=== PATIENT | male | born 1955 | race Hispanic/Latino ===

== ENCOUNTER 2019-10-19 19:10 | Emergency (ER) | payer OTHER, SELFPAY ==
[2019-10-19] MEDS ORDERED: IBUPROFEN 400 MG TAB ONE (19:55)
[2019-10-19] MEDS ORDERED: IBUPROFEN 200 MG TAB PO ONE (19:55)
[2019-10-19] MEDS ORDERED: NA CHLORIDE 0.9% 500 ML ONE (19:56)
[2019-10-19 20:05] LABS: Absolute Lymphocytes (CBC) 1.3 K/uL (0.7-4.9); Basophils % 0.5 % (0-1.3); Hematocrit 44.8 % (39.6-49.0); Lymphocytes % 15.2 % (15.3-44.8); MPV 10.3 fL (7.6-11.3); RBC Red Blood Cell Count 4.81 M/uL (4.33-5.43)
[2019-10-19] MEDS ORDERED: LIDOCAINE 1% MPF 5 ML VIAL ONE (20:42)
[2019-10-19 21:44] LABS: Body Fluid Source SYNOVIAL; Color of fluid Yellow (COLORLESS)
[2019-10-19 21:45] LABS: Appearance SLT. TURBID (CLEAR)
[2019-10-19 21:52] LABS: Body Fluid WBC 628 /mm^3
--- NOTE | 2019-10-19 21:57 | ER ---
Nurse's Notes [facility] Name: Shameka Villanueva Age: 64 yrs Sex: Male : 1955 Arrival Date: 10/19/2019 Time: 19:14 Bed 13 Private MD: Diagnosis: Pain in left knee;Cellulitis of left lower limb-Thigh/knee Presentation: 10/18 19:29 Chief complaint: Patient states: L knee pain, redness and swelling worst today. Reports ca1 unable to bend L knee today. Pain started on Sunday but hasn't been this worse. Denies fever, cough and congestion. Coronavirus screen: Patient denies fever greater than 100.4F, cough, shortness of breath, or difficulty breathing. Proceed with normal triage process. Ebola Screen: Patient negative for fever greater than or equal to 101.5 degrees Fahrenheit, and additional compatible Ebola Virus Disease symptoms Patient denies exposure to infectious person. Patient denies travel to an Ebola-affected area in the 21 days before illness onset. No symptoms or risks identified at this time. Initial Sepsis Screen: Does the patient meet any 2 criteria? No. Patient's initial sepsis screen is negative. Does the patient have a suspected source of infection? No. Patient's initial sepsis screen is negative. Risk Assessment: Do you want to hurt yourself or someone else? Patient reports no desire to harm self or others. Onset of symptoms was October 19, 2019. 19:29 Method Of Arrival: Wheelchair ca1 19:29 Acuity: SHAQ 3 ca1 Historical: - Allergies: 19:32 No Known Allergies; ca1 - Home Meds: 19:32 None [Active]; ca1 - PMHx: 19:32 None; ca1 - PSHx: 19:32 Hernia repair; ca1 - Immunization history:: Adult Immunizations not up to date, Flu vaccine is up to date. - Social history:: Smoking status: Patient/guardian denies using tobacco, the patient reports quitting approximately 28 years ago. Screenin:07 Abuse screen: Denies threats or abuse. Nutritional screening: No deficits noted. jv1 Tuberculosis screening: No symptoms or risk factors identified. Fall Risk No fall in past 12 months (0 pts). Assessment: 20:02 General: Appears in no apparent distress. uncomfortable, Behavior is calm, cooperative, jv1 appropriate for age. Pain: Complains of pain in left knee Pain does not radiate. Pain currently is 8 out of 10 on a pain scale. Neuro: Level of Consciousness is awake, alert, obeys commands, Oriented to person, place, time, situation, Leather Heel Breaster are equal bilaterally Moves all extremities. Cardiovascular: Denies chest pain. Respiratory: Airway is patent Breath sounds are clear bilaterally. GI: Abdomen is round non-distended, Bowel sounds present X 4 quads. : No signs and/or symptoms were reported regarding the genitourinary system. EENT: No signs and/or symptoms were reported regarding the EENT system. Derm: Skin is intact, is healthy with good turgor, pt has rash, erythematous over left knee. Musculoskeletal: Circulation, motion, and sensation intact. Capillary refill < 3 seconds, Range of motion: limited in left leg, pt stated he cannot bend his leg because of pain. 20:50 Reassessment: provider in the room with pt. jv1 21:00 Reassessment: Patient appears in no apparent distress at this time. No changes from jv1 previously documented assessment. Patient and/or family updated on plan of care and expected duration. Pain level reassessed. Patient is alert, oriented x 3, equal unlabored respirations, skin warm/dry/pink. Patient states feeling better. 22:02 Reassessment: Patient appears in no apparent distress at this time. No changes from jv1 previously documented assessment. Patient and/or family updated on plan of care and expected duration. Pain level reassessed. Patient is alert, oriented x 3, equal unlabored respirations, skin warm/dry/pink. provider in the room with pt. Vital Signs: 19:29 BP 141 / 94; Pulse 109; Resp 17 S; Temp 96.7(TE); Pulse Ox 95% on R/A; Weight 92.99 kg ca1 (R); Height 5 ft. 8 in. (172.72 cm) (R); Pain 8/10; 19:29 BP 141 / 94; Pulse 109; Resp 18; Temp 97.0; Pulse Ox 92% on R/A; Pain 8/10; jv1 20:59 BP 147 / 90; Pulse 83; Resp 18; Temp 97.5; Pulse Ox 98% ; Pain 5/10; jv1 22:02 BP 148 / 90; Pulse 88; Resp 18; Temp 98.2; Pulse Ox 95% ; Pain 3/10; jv1 19:29 Body Mass Index 31.17 (92.99 kg, 172.72 cm) ca1 ED Course: 19:14 Patient arrived in ED. ds1 19:14 [facility] la1 19:14 Jose Wylie MD is Attending Physician. la1 19:31 Triage completed. ca1 19:32 Arm band placed on right wrist. ca1 19:59 Inserted saline lock: 20 gauge in right antecubital area, using aseptic technique. dh4 20:06 Knee Left 3 View XRAY In Process Unspecified. EDMS 20:08 Patient has correct armband on for positive identification. Bed in low position. Side jv1 rails up X2. 21:09 synovial fluid aspiration on the left knee. jv1 22:23 IV discontinued, intact, bleeding controlled, No redness/swelling at site. Pressure jv1 dressing applied. Administered Medications: 19:57 Drug: Ibuprofen 600 mg Route: PO; jv1 21:15 Follow up: Response: No adverse reaction; Pain is decreased jv1 19:58 Drug: NS 0.9% 500 ml Route: IV; Rate: bolus; Site: right antecubital; jv1 21:22 Follow up: Response: No adverse reaction; IV Status: Completed infusion jv1 21:05 Drug: Lidocaine (1 %) 5 ml {Note: Administered by JUDITH Avalos.} Volume: 5 ml; Route: jv1 Infiltration; 22:08 Drug: Doxycycline 100 mg Route: PO; jv1 22:21 Follow up: Response: No adverse reaction jv1 22:09 Drug: Bactrim (160 mg-800 mg (DS) 1 tablet Route: PO; jv1 22:21 Follow up: Response: No adverse reaction jv1 Outcome: 21:57 Discharge ordered by . la1 22:22 Discharged to home ambulatory. jv1 22:22 Condition: good 22:22 Discharge instructions given to patient, Instructed on discharge instructions, follow up and referral plans. medication usage, Demonstrated understanding of instructions, follow-up care, medications, Prescriptions given X 3. 22:26 Patient left the ED. jv1 Signatures: Dispatcher [employer] EDFL Geneva Garcia ds1 Robbie Rockwell FNP-C [employer] TECHNICIAN-Cla1 Viv Henson, RN RN jv1 Martha Pacheco, RN RN ca1 Magdiel Young 4
--- NOTE | 2019-10-19 21:58 | EDPHYS ---
Physician Documentation [facility] Name: Shameka Villanueva Age: 64 yrs Sex: Male : 1955 Arrival Date: 10/19/2019 Time: 19:14 Bed 13 Private MD: ED Physician Jose Wylie HPI: 10/18 19:41 This 64 yrs old Male presents to ER via Wheelchair with complaints of Knee la1 Pain. 19:41 The patient presents with pain, a rash, erythematous, swelling. The complaints affect la1 the left knee. Context: The problem was sustained at home, resulted from an unknown cause, the patient can partially bear weight, Onset: The symptoms/episode began/occurred 4 day(s) ago. Modifying factors: The symptoms are alleviated by nothing. the symptoms are aggravated by movement, bending knee. Associated signs and symptoms: Pertinent negatives fever. Severity of symptoms: At their worst the symptoms were moderate. The patient has not experienced similar symptoms in the past. pt reports pain that started in his knee 4 days ago and redness that began today, reports significant pain with ROM of the knee. Historical: - Allergies: 19:32 No Known Allergies; ca1 - Home Meds: 19:32 None [Active]; ca1 - PMHx: 19:32 None; ca1 - PSHx: 19:32 Hernia repair; ca1 - Immunization history:: Adult Immunizations not up to date, Flu vaccine is up to date. - Social history:: Smoking status: Patient/guardian denies using tobacco, the patient reports quitting approximately 28 years ago. ROS: 19:42 Constitutional: Negative for fever, chills, and weight loss, Eyes: Negative for injury, la1 pain, redness, and discharge, Neck: Negative for injury, pain, and swelling, Cardiovascular: Negative for chest pain, palpitations, and edema, Respiratory: Negative for shortness of breath, cough, wheezing, and pleuritic chest pain, Abdomen/GI: Negative for abdominal pain, nausea, vomiting, diarrhea, and constipation, Back: Negative for injury and pain. 19:42 MS/extremity: Positive for decreased range of motion, erythema, swelling, warmth, of the medial aspect of left knee and left knee. 19:42 Skin: Positive for erythema, of the left knee. Exam: 19:43 Constitutional: This is a well developed, well nourished patient who is awake, alert, la1 and in no acute distress. Head/Face: Normocephalic, atraumatic. Chest/axilla: Normal chest wall motion. Cardiovascular: Regular rate and rhythm with a normal S1 and S2. Respiratory: Lungs have equal breath sounds bilaterally, clear to auscultation Abdomen/GI: Soft, non-tender, with normal bowel sounds. Back: No spinal tenderness. No costovertebral tenderness. Full range of motion. Neuro: Awake and alert, GCS 15, oriented to person, place, time, and situation. 19:43 Musculoskeletal/extremity: ROM: limited active range of motion due to pain, limited passive range of motion due to pain, in the left knee, Pulses: noted to be 3+ in the right dorsalis pedis artery and left dorsalis pedis artery. 19:43 Skin: Appearance: normal except for affected area, erythema noted to left knee, over patella and extending partially up the thigh, mild in appearance . Vital Signs: 19:29 BP 141 / 94; Pulse 109; Resp 17 S; Temp 96.7(TE); Pulse Ox 95% on R/A; Weight 92.99 kg ca1 (R); Height 5 ft. 8 in. (172.72 cm) (R); Pain 8/10; 19:29 BP 141 / 94; Pulse 109; Resp 18; Temp 97.0; Pulse Ox 92% on R/A; Pain 8/10; jv1 20:59 BP 147 / 90; Pulse 83; Resp 18; Temp 97.5; Pulse Ox 98% ; Pain 5/10; jv1 22:02 BP 148 / 90; Pulse 88; Resp 18; Temp 98.2; Pulse Ox 95% ; Pain 3/10; jv1 19:29 Body Mass Index 31.17 (92.99 kg, 172.72 cm) ca1 Procedures: 21:09 Joint Treatment: Aspiration of left knee using anesthetized with 27g needle and 1% lido la1 without, aspirated with 22 G spinal needle, area prepped with betadine, draped with sterile OR towels, performed with sterile procedure. . Removed clarence fluid, yellow fluid, Specimen sent to lab. Patient tolerated well. MDM: 19:29 Patient medically screened. la1 21:23 ED course: decision to perform joint aspiration due to monoarticular joint pain, pain la1 and limited ROM, and some mild erythema present over patella and over thigh. No contraindications to procedure present, no use of anticoagulants, no cellulitis overlying the injection site. Preforming aspiration to R/O septic arthritis.. 21:57 Data reviewed: vital signs, nurses notes, lab test result(s), radiologic studies, I la1 have discussed the patient's presentation/case with the attending Emergency Department Physician; and as a result, I will discharge patient. Data interpreted: Pulse oximetry: on room air is 100 %. Test interpretation: by ED physician or midlevel provider: plain radiologic studies. Counseling: I had a detailed discussion with the patient and/or guardian regarding: the historical points, exam findings, and any diagnostic results supporting the discharge/admit diagnosis, lab results, radiology results, the need for outpatient follow up, a orthopedic surgeon, to return to the emergency department if symptoms worsen or persist or if there are any questions or concerns that arise at home. 10/18 19:36 Order name: CBC with Diff; Complete Time: 20:23 10/18 19:36 Order name: Sed Rate; Complete Time: 20:23 10/18 19:36 Order name: CRP; Complete Time: 20:20 10/18 19:36 Order name: Blood Culture Adult (2) 10/18 20:39 Order name: Fluid Cell Count,Body; Complete Time: 21:55 10/18 20:39 Order name: Fluid Crystals; Complete Time: 21:28 10/18 19:36 Order name: Knee Left 3 View XRAY 10/18 19:36 Order name: IV Start; Complete Time: 20:23 10/18 20:43 Order name: Body Fluid Culture EDMS Administered Medications: 19:57 Drug: Ibuprofen 600 mg Route: PO; jv1 21:15 Follow up: Response: No adverse reaction; Pain is decreased jv1 19:58 Drug: NS 0.9% 500 ml Route: IV; Rate: bolus; Site: right antecubital; jv1 21:22 Follow up: Response: No adverse reaction; IV Status: Completed infusion jv1 21:05 Drug: Lidocaine (1 %) 5 ml {Note: Administered by JUDITH Avalos.} Volume: 5 ml; Route: jv1 Infiltration; 22:08 Drug: Doxycycline 100 mg Route: PO; jv1 22:21 Follow up: Response: No adverse reaction jv1 22:09 Drug: Bactrim (160 mg-800 mg (DS) 1 tablet Route: PO; jv1 22:21 Follow up: Response: No adverse reaction jv1 Disposition: 22:59 Co-signature as Attending Physician, Jose Wylie MD. pkl Disposition: 10/19/19 21:57 Discharged to Home. Impression: Pain in left knee, Cellulitis of left lower limb - Thigh/knee. - Condition is Stable. - Discharge Instructions: Joint Pain, Cellulitis, Adult, Knee Pain, Form - Return To Work. - Prescriptions for Bactrim DS 800- 160 mg Oral Tablet - take 1 tablet by ORAL route every 12 hours for 10 days; 20 tablet. Doxycycline Hyclate 100 mg Oral Tablet - take 1 tablet by ORAL route every 12 hours; 20 tablet. Tramadol 50 mg Oral Tablet - take 1 tablet by ORAL route every 8 hours as needed; 12 tablet. - Medication Reconciliation Form, Thank You Letter, Antibiotic Education, Work release form form. - Follow up: Private Physician; When: 2 - 3 days; Reason: Recheck today's complaints, Re-evaluation by your physician. - Problem is new. - Symptoms have improved. Signatures: Dispatcher [employer] EDMS Jose Wylie MD MD pkl Robbie Rockwell FNP-C SAMPLE CUTTER-Cla1 Viv Henson RN RN jv1 Martha Pacheco RN RN ca1 Corrections: (The following items were deleted from the chart) 21:23 19:43 Skin: Appearance: normal except for affected area, cellulitis, that is moderate, la1 on the medial aspect of left knee and left knee, la1 22:26 21:57 10/19/2019 21:57 Discharged to Home. Impression: Pain in left knee; Cellulitis of jv1 left lower limb - Thigh/knee. Condition is Stable. Discharge Instructions: Joint Pain, Cellulitis, Adult, Musculoskeletal Pain, Knee Pain. Prescriptions for Bactrim DS 800-160 mg Oral Tablet - take 1 tablet by ORAL route every 12 hours for 10 days; 20 tablet, Doxycycline Hyclate 100 mg Oral Tablet - take 1 tablet by ORAL route every 12 hours; 20 tablet. and Forms are Medication Reconciliation Form, Thank You Letter, Antibiotic Education, Prescription Opioid Use. Follow up: Private Physician; When: 2 - 3 days; Reason: Recheck today's complaints, Re-evaluation by your physician. Problem is new. Symptoms have improved. la1
[2019-10-19] MEDS ORDERED: SMZ./TMP. 800/160 MG TABLET ONE (22:09)
[2019-10-19] MEDS ORDERED: DOXYCYCLINE 100 MG CAP PO ONE (22:09)
[2019-10-19 22:54] VITALS: BP 148/90; TEMP 98.2; O2SAT 95
--- NOTE | 2019-10-20 08:17 | RAD REPORT ---
EXAM DESCRIPTION: RAD - Knee Left 3 View - 10/19/2019 8:04 pm CLINICAL HISTORY: Left knee pain FINDINGS: No fracture or dislocation is seen. Mild lateral joint space narrowing. Soft tissue swelling is noted. Bones appear somewhat osteoporotic
== END 2019-10-19 22:26 | disposition home or self-care (01) ==
LOC: ER 19:10
PROC: 0S9D3ZZ Drainage of Left Knee Joint, Percutaneous Approach (ICD-10-PCS; principal; 2019-10-19)
DX: L03.116 Cellulitis of left lower limb (principal)
CPT/HCPCS: 36415; 85025; 85652; 86140; 87040; 87070; 89050; 89060; 96360; 99284; J7040

== ENCOUNTER 2022-09-26 09:49 | Emergency (ER) | payer OTHER, SELFPAY ==
--- OUTSIDE RECORDS SUMMARY | 2022-09-26 09:53 | XMS REPORT | Continuity of Care Document ---
:1955 Author Organization [facility] t Address [address] [facility] [address] [place] [address] Care Team Providers Name Role Phone PCP, PATIENT DOES NOT HAVE A Primary Care Physician Unavaila ble Pati Shirley Attending Clinician Unknown, Attending Attending Clinician Unavailable PATI BRADFORD Attending Clinician Unavailable Doctor Unassigned, [place] Attending Clinician Unavailable Vaccine, Adc Family Medicine Attending Clinician Unavailable Sumanth Jules DO Attending Clinician SUMANTH JULES Attending Clinician Unavailable Trevor THORNTON, Doreen Rivera Attending Clinician Unavailable ALISON VILLEGAS Attending Clinician Unavailable Only, Ang Db Test Attending Clinician Unavailable Alison Peralta Attending Clinician Nurse, Adc Pob Immunization Attending Clinician Unavailable Marcus Holly MD Attending Clinician MARCUS HOLLY Attending Clinician Unavailable JOHN RODRIGUEZ Attending Clinician Unavailable Landy Hudson Attending Clinician Vishal Cardenas Attending Clinician Problems Condition Condition Condition Status Onset Resolution Last Treating Co mments Source Name Details Category Date Date Treatment Clinician Date Essential Essential Disease Active Uni vers hypertensi hypertensi 5-19 it y of on on 00:00: [address] No known No known Disease Unive rs active active ity of problems problems [facility] Allergies, Adverse Reactions, Alerts Allergy Allergy Status Severity Reaction(s) Onset Inactive Treating Comm ents Source Name Type Date Date Clinician NO KNOWN Drug Active Univers ALLERGIE Class ity of S [facility] Social History Social Habit Start Date Stop Date Quantity Comments Source History SDAL University o f Alcohol [facility] edical Branch History SDAL University o f Alcohol Std Drinks [facility] History [facility] o f Alcohol Binge [facility] [place] Exposure to 2022-09-12 2022-09-22 Not sure [facility] SARS-CoV-2 (event) 00:00:00 09:25:00 [facility] Cigarettes smoked 2022-09-22 2022-09-22 Univers ity of current (pack per 00:00:00 00:00:00 [facility] ) - Reported Branch Cigarette 2022-09-22 2022-09-22 University of pack-years 00:00:00 00:00:00 [facility] Tobacco use and 2022-09-22 2022-09-22 Smokeless Universit y of exposure 00:00:00 00:00:00 tobacco non-user [facility] dical [place] Alcohol intake 2022-09-22 2022-09-22 Current drinker Unive rsity of 00:00:00 00:00:00 of alcohol [facility] (finding) [place] Alcohol Comment 2017-06-04 2017-06-04 social; 1-2 Universi ty of 00:00:00 00:00:00 every 2 weeks. [facility] History of tobacco 2005-06-04 Cigarette Smoker University of use 00:00:00 [facility] Sex Ass[birth year] Universit y of 00:00:00 00:00:00 [facility] Smoking Status Start Date Stop Date Source Ex-smoker 2022-09-22 00:00:00 2022-09-22 00:00:00 Universi ty of [facility] Medications Ordered Filled Start Stop Current Ordering Indication Dosage Frequency Signature Comments Components Source Medication Medication Date Date Medication? Clinician (SIG) Name Name lisinopriL 2021-0 Yes [id number] 10mg Take 1 U nivers 10 mg 5-19 tablet by ity of tablet 00:00: mouth [place] 00 daily. [facility] Branch lisinopriL 0 Yes [id number] 10mg Take 1 U nivers 10 mg 5-19 tablet by ity of tablet 00:00: mouth [place] 00 daily. [facility] lisinopriL 0 Yes [id number] 10mg Take 1 U nivers 10 mg 5-19 tablet by ity of tablet 00:00: mouth [place] 00 daily. [facility] lisinopriL 0 Yes [id number] 10mg Take 1 U nivers 10 mg 5-19 tablet by ity of tablet 00:00: mouth [place] 00 daily. [facility] lisinopriL 0 Yes [id number] 10mg Take 1 U nivers 10 mg 5-19 tablet by ity of tablet 00:00: mouth [place] 00 daily. [facility] lisinopriL Yes [id number] 10mg Take 1 U nivers 10 mg 5-19 tablet by ity of tablet 00:00: mouth [place] 00 daily. [facility] lisinopriL Yes [id number] 10mg Take 1 U nivers 10 mg 5-19 tablet by ity of tablet 00:00: mouth [place] 00 daily. [facility] lisinopriL 0 Yes [id number] 10mg Take 1 U nivers 10 mg 5-19 tablet by ity of tablet 00:00: mouth [place] 00 daily. [facility] lisinopriL Yes [id number] 10mg Take 1 U nivers 10 mg 5-19 tablet by ity of tablet 00:00: mouth [place] 00 daily. [facility] lisinopriL 0 Yes [id number] 10mg Take 1 U nivers 10 mg 5-19 tablet by ity of tablet 00:00: mouth [place] 00 daily. [facility] naproxen 2020- No 500mg 500 mg, Univ ers (NAPROSYN) 03-14 Oral, ity of tablet 500 05:45: 04:45 ONCE, 1 [place] as mg 00 :00 dose, [facility] 03/14/20 at Branch 0045, Routine HYDROcodone 2020- No 1{tbl} 1 tablet, Univers -acetaminop 03-14 Oral, ity of hen (NORCO) 05:45: 04:45 [place] :00 dose, [facility] tablet 1 03/14/20 at [facility] tablet 0045, Routine lidocaine-r 2019- No 3mL 3 mL, Univ ers acepinep-te 03-14 Topical, ity of tracaine 04:30: 03:45 ONCE, 1 [place] (L.E.T. 00 :00 dose, Sat Medical (LIDO-EPINE 03/13/20 at [facility] PH-TETRA)) 2330, 4-0.05-0.5 Routine % topical gel 3 mL acetaminoph 2019- No 1000mg 1,000 mg, Univers en 03-14 Oral, ity of (TYLENOL) 01:30: 00:21 ONCE, 1 [place] tablet [place] :[place] dose, Sat Medical 1,000 mg 03/13/20 at [facility] h 2030, FAVIO naproxen 2019-0 Yes [id number] 500mg Take 1 U nivers (NAPROSYN) 8-15 tablet by ity of 500 mg 00:00: mouth 2 [place] tablet 00 (two) Medical times Branch daily with meals. naproxen 2020-0 Yes [id number] 500mg Take 1 U nivers (NAPROSYN) 8-15 tablet by ity of 500 mg 00:00: mouth 2 [place] tablet 00 (two) Medical times Branch daily with meals. naproxen 2019-0 Yes [id number] 500mg Take 1 U nivers (NAPROSYN) 8-15 tablet by ity of 500 mg 00:00: mouth 2 [place] tablet 00 (two) Medical times Branch daily with meals. naproxen 2020-0 2020- No [id number] 500mg Take 1 Univers (NAPROSYN) 8-15 05-19 tablet by ity of 500 mg 00:00: 00:00 mouth 2 [place] tablet 00 :00 (two) Medical times Branch daily with meals. naproxen 2020-0 2020- No [id number] 500mg Take 1 Univers (NAPROSYN) 8-15 05-19 tablet by ity of 500 mg 00:00: 00:00 mouth 2 [place] tablet 00 :00 (two) Medical times Branch daily with meals. sharri 2018-07 Yes [id number] Apply to [facility] 2-07 area(s) 2 ity of acetonide 00:00: (two) [place] 0.1 % cream 00 times Medical daily. Branch triamcinolo 2018-07 Yes [id number] Apply to [facility] 2-07 area(s) 2 ity of acetonide 00:00: (two) [place] 0.1 % cream 00 times Medical daily. Branch triamcinolo 2018-07 Yes [id number] Apply to [facility] 2-07 area(s) 2 ity of acetonide 00:00: (two) [place] 0.1 % cream 00 times Medical daily. Branch triamcinolo 2018-07- No [id number] Apply to [facility] 2-07 05-19 area(s) 2 ity of acetonide 00:00: 00:00 (two) [place] 0.1 % cream 00 :00 times Medical daily. Branch stasamcinolo 2018-07- No [id number] Apply to [facility] 2-07 05-19 area(s) 2 ity of acetonide 00:00: 00:00 (two) [place] 0.1 % cream 00 :00 times Medical daily. Branch hydrOXYzine Yes [id number] 25mg Take 1 Univers 25 mg 4-04 tablet by ity of tablet 00:00: mouth [place] 00 every 6 Medical (six) Branch hours as needed for Itching. hydrOXYzine Yes [id number] 25mg Take 1 Univers 25 mg 4-04 tablet by ity of tablet 00:00: mouth [place] 00 every 6 Medical (six) Branch hours as needed for Itching. hydrOXYzine Yes [id number] 25mg Take 1 Univers 25 mg 4-04 tablet by ity of tablet 00:00: mouth [place] 00 every 6 Medical (six) Branch hours as needed for Itching. hydrOXYzine 2020- No [id number] 25mg Take 1 Univers 25 mg 4-04 05-19 tablet by ity of tablet 00:00: 00:00 mouth [place] 00 :00 every 6 Medical (six) Branch hours as needed for Itching. hydrOXYzine 2020- No [id number] 25mg Take 1 Univers 25 mg 4-04 05-19 tablet by ity of tablet 00:00: 00:00 mouth [place] 00 :00 every 6 Medical (six) Branch hours as needed for Itching. Immunizations Ordered Filled Immunization Date Status Comments [facility] e Immunization Name Name SARS-COV-2 COVID-19 2022-04-19 Completed Unive rsity of VACCINE 18 YRS+, 00:00:00 [place] Me dical BIVALENT 0.5ML, IM, Branc h (MODERNA BOOSTER) SARS-COV-2 COVID-19 2022-04-19 Completed Unive rsity of VACCINE 12 YRS+, 00:00:00 [place] Me dical BIVALENT 0.5ML, IM, Branc h (MODERNA BOOSTER) SARS-COV-2 COVID-19 2022-04-19 Completed Unive rsity of VACCINE 12 YRS+, 00:00:00 [place] Me dical BIVALENT 0.5ML, IM, Branc h (MODERNA BOOSTER) SARS-COV-2 COVID-19 2021-06-06 Completed Unive rsity of MODERNA BOOSTER 00:00:00 [place] Med ical VACCINE Branch SARS-COV-2 COVID-19 2021-06-06 Completed Unive rsity of MODERNA BOOSTER 00:00:00 [place] Med ical VACCINE Branch SARS-COV-2 COVID-19 2021-06-06 Completed Unive rsity of MODERNA BOOSTER 00:00:00 [place] Med ical VACCINE Branch SARS-COV-2 COVID-19 2021-06-06 Completed Unive rsity of MODERNA BOOSTER 00:00:00 [place] Med ical VACCINE Branch SARS-COV-2 COVID-19 2021-06-06 Completed Unive rsity of MODERNA BOOSTER 00:00:00 [place] Med ical VACCINE Branch SARS-COV-2 COVID-19 2021-06-06 Completed Unive rsity of MODERNA 0.25ML 00:00:00 [place] Medi ricardo BOOSTER VACCINE Branch SARS-COV-2 COVID-19 2021-06-06 Completed Unive rsity of MODERNA 0.25ML 00:00:00 [place] Medi ricardo BOOSTER VACCINE Branch SARS-COV-2 COVID-19 2021-06-06 Completed Unive rsity of MODERNA 0.25ML 00:00:00 [place] Medi ricardo BOOSTER VACCINE Branch SARS-COV-2 COVID-19 2020-11-03 Completed Unive rsity of MODERNA VACCINE 00:00:00 [place] Med ical Branch SARS-COV-2 COVID-19 2020-11-03 Completed Unive rsity of MODERNA VACCINE 00:00:00 [place] Med ical Branch SARS-COV-2 COVID-19 2020-11-03 Completed Unive rsity of MODERNA VACCINE 00:00:00 [place] Med ical Branch SARS-COV-2 COVID-19 2020-11-03 Completed Unive rsity of MODERNA VACCINE 00:00:00 [place] Med ical Branch SARS-COV-2 COVID-19 2020-11-03 Completed Unive rsity of MODERNA VACCINE 00:00:00 [place] Med ical Branch SARS-COV-2 COVID-19 2020-11-03 Completed Unive rsity of MODERNA VACCINE 00:00:00 [place] Med ical Branch SARS-COV-2 COVID-19 2020-11-03 Completed Unive rsity of MODERNA 12+ YRS 00:00:00 [place] Med ical VACCINE Branch SARS-COV-2 COVID-19 2020-11-03 Completed Unive rsity of MODERNA 12+ YRS 00:00:00 [place] Med ical VACCINE Branch SARS-COV-2 COVID-19 2020-11-03 Completed Unive rsity of MODERNA 12+ YRS 00:00:00 [place] Med ical VACCINE Branch SARS-COV-2 COVID-19 2020-11-03 Completed Unive rsity of MODERNA VACCINE 00:00:00 [place] Med ical Branch SARS-COV-2 COVID-19 2020-10-06 Completed Unive rsity of MODERNA VACCINE 00:00:00 [place] Med ical Branch SARS-COV-2 COVID-19 2020-10-06 Completed Unive rsity of MODERNA VACCINE 00:00:00 [place] Med ical Branch SARS-COV-2 COVID-19 2020-10-06 Completed Unive rsity of MODERNA VACCINE 00:00:00 [place] Med ical Branch SARS-COV-2 COVID-19 2020-10-06 Completed Unive rsity of MODERNA VACCINE 00:00:00 [place] Med ical Branch SARS-COV-2 COVID-19 2020-10-06 Completed Unive rsity of MODERNA VACCINE 00:00:00 [place] Med ical Branch SARS-COV-2 COVID-19 2020-10-06 Completed Unive rsity of MODERNA VACCINE 00:00:00 [place] Med ical Branch SARS-COV-2 COVID-19 2020-10-06 Completed Unive rsity of MODERNA 12+ YRS 00:00:00 [place] Med ical VACCINE Branch SARS-COV-2 COVID-19 2020-10-06 Completed Unive rsity of MODERNA 12+ YRS 00:00:00 [place] Med ical VACCINE Branch SARS-COV-2 COVID-19 2020-10-06 Completed Unive rsity of MODERNA 12+ YRS 00:00:00 [place] Med ical VACCINE Branch SARS-COV-2 COVID-19 2020-10-06 Completed Unive rsity of MODERNA VACCINE 00:00:00 [facility] Vital Name Observation Time Observation Value Comments Source Systolic blood 2022-09-22 16:13:00 149 mm[Hg] Univer sity of pressure [facility] Diastolic blood 2022-09-22 16:13:00 94 mm[Hg] Unive rsity of pressure [facility] Heart rate 2022-09-22 16:13:00 114 /min [facility] Body temperature 2022-09-22 16:13:00 36.89 Jeny [facility] Res[facility] rate 2022-09-22 16:13:00 16 /min [facility] Body weight 2022-09-22 16:13:00 106.595 kg [facility] BMI 2022-09-22 16:13:00 35.73 kg/m2 [facility] Oxygen saturation in 2022-09-22 16:13:00 99 /min [facility] Arterial blood by [facility] Pulse oximetry Branch Diastolic blood 2020-12-15 18:29:00 98 mm[Hg] Unive rsity of pressure [facility] Heart rate 2020-12-15 18:29:00 105 /min [facility] Body height 2020-12-15 18:29:00 172.7 cm [facility] Body weight 2020-12-15 18:29:00 109.77 [facility] BMI 2020-12-15 18:29:00 36.80 kg/m2 [facility] Systolic blood 2020-12-15 18:29:00 146 mm[Hg] Univer sity of pressure [place] [facility] Systolic blood 2020-03-23 21:19:00 134 mm[Hg] Univer sity of pressure [place] [facility] Diastolic blood 2020-03-23 21:19:00 94 mm[Hg] Unive rsity of pressure [place] [facility] Heart rate 2020-03-23 21:19:00 100 /min Universi ty of [facility] Body temperature 2020-03-23 21:19:00 36.89 Jeny Univ ersity of [place] [facility] Respiratory rate 2020-03-23 21:19:00 18 /min Univ ersity of [place] [facility] Body weight 2020-03-23 21:19:00 113.399 kg Universi ty of [place] [facility] [place] BMI 2020-03-23 21:19:00 38.01 kg/m2 Universi ty of [place] [facility] [place] Oxygen saturation in 2020-03-23 21:19:00 97 /min University of Arterial blood by [facility] Pulse oximetry Branch Heart rate 2020-03-14 04:30:00 100 /min Universi ty of [place] [facility] Respiratory rate 2020-03-14 04:30:00 23 /min Univ ersity of [place] [facility] Oxygen saturation in 2020-03-14 04:30:00 97 /min University of Arterial blood by [facility] Pulse oximetry Branch Systolic blood 2020-03-14 04:00:00 146 mm[Hg] Univer sity of pressure [place] [facility] Diastolic blood 2020-03-14 04:00:00 92 mm[Hg] Unive rsity of pressure [facility] Body temperature 2020-03-14 00:12:00 36.56 Jeny Univ ersity of [place] [facility] [place] Body weight 2020-03-14 00:12:00 113.399 kg Universi ty of [place] [facility] BMI 2020-03-14 00:12:00 38.01 kg/m2 Universi ty of [place] [facility] Procedures Procedure Date / Time Performed Performing Clinician [facility] e CONSENT/REFUSAL FOR 2022-09-22 15:25:52 Doctor Unassigned, No Un [facility] of [place] DIAGNOSIS AND Name Medical Branch TREATMENT SARS-COV-2 COVID-19 2022-04-19 14:00:39 Doctor Unassigned, No Un [facility] of [place] VACCINE 18 YRS+, Name Medical Branch BIVALENT 0.5ML, IM (MODERNA BOOSTER) SARS-COV-2 COVID-19 2021-06-06 20:13:47 Doctor Unassigned, No Un [facility] [place] VACCINE Name Medical Branch BOOSTER,0.25ML,IM (MODERNA) CONSENT/REFUSAL FOR 2020-03-23 21:12:09 Doctor Unassigned, No Un [facility] [place] DIAGNOSIS AND Name Medical Branch TREATMENT TROPONIN I 2020-03-14 03:35:00 Vishal Alex [facility] XR CHEST 1 VW 2020-03-14 00:53:20 Vishal Alex [facility] POCT GLUCOSE(AGE 2020-03-14 00:48:00 Vishal Alex [facility] >30DAYS) Medical Branch POCT GLUCOSE 2020-03-14 00:47:00 Vishal Alex [facility] (AUTOMATED) [facility] CT CERVICAL SPINE WO 2020-03-14 00:39:03 Vishal Alex [facility] CONTRAST Medical Branch CT HEAD WO CONTRAST 2020-03-14 00:39:03 Vishal Alex [facility] ty [facility] [place] MAGNESIUM 2020-03-14 00:21:00 Vishal Alex [facility] TROPONIN I 2020-03-14 00:21:00 Vishal Alex [facility] COMP. METABOLIC PANEL 2020-03-14 00:21:00 Vishal Alex [facility] ([id number]) Medical Branch ETHANOL 2020-03-14 00:21:00 Vishal Alex [facility] CBC WITH DIFF 2020-03-14 00:21:00 Vishal Alex [facility] EKG-12 LEAD 2020-03-14 00:20:11 Vishal Alex [facility] NOTICE OF PRIVACY 2020-03-14 00:03:11 Doctor Unassigned, No Univ [facility] PRACTICES Name Medical Branch CONSENT/REFUSAL FOR 2020-03-14 00:02:18 Doctor Unassigned, No Un [facility] [place] DIAGNOSIS AND Name Medical Branch TREATMENT ED LACERATION REPAIR 2020-03-14 00:01:00 Vishal Alex [facility] Encounters Start End Encounter Admission Attending Care Care Encounter Source Date/Time Date/Time Type Type Clinicians Facility Department ID 2021-05-27 Emergency [facility] [id number] Univers 14:29:19 ity of [facility] 2021-05-27 Emergency [facility] [id number] Univers 12:41:08 ity of [facility] 2022-09-22 2022-09-22 Urgent Pati Bradford [facility] [id number] Univers 09:20:00 09:40:00 Care Unknown, Attending HEALTH [id number] ity of [place] [id number] Will as GERRI?BLEA [phone] Sc dicsruthi KNEY [address] [place] MEDICAL OFFICE BUILDING 2022-09-22 2022-09-22 Outpatient R LIZETTE [facility] [id number] Univers 09:20:00 09:20:00 PATI ellis [facility] 2022-09-22 2022-09-22 Orders Doctor PRIEST 1.2.840.114 [id number] Univers 00:00:00 00:00:00 Only Unassigned, ROJELIO [id number] ity of [place] [facility] [id number] Will as [phone] [place] [address] Branch 2022-04-19 2022-04-19 Imm/Inj Vaccine, Adc Family Medicine [facility] 1.2.840.114 [id number] Univers 09:30:00 09:40:00 Visit Sumanth Jules 350.1.13 .10 ity [id number] [phone] Sc ester [facility] 044 Branch BUILDING 2022-04-19 2022-04-19 Outpatient R JORGE A [facility] [id number] Univers 09:30:00 09:30:00 SUMANTH ellis [facility] 2021-08-05 2021-08-05 Letter ZAYDA Murray 1.2.840.114 [id number] Univers 00:00:00 00:00:00 (Out) Doreen SERRATO [id number] it y of HOSPITAL [id number] Will as [id number] [facility] 019 [place] 2021-08-03 2021-08-03 Outpatient R BAKARI [facility] [id number] Univers 13:15:00 13:23:00 [facility] 2021-08-03 2021-08-03 Laboratory Only, Ang Db Test [facility] 1.2.8 40.114 [id number] Univers 13:15:00 13:23:00 Only Bakari [facility] [id number] ity of [place] [id number] Will as GERRI?BLEA [phone] Sc dical KNEY [address] [place] MEDICAL OFFICE BUILDING 2021-08-03 2021-08-03 Outpatient R BAKARI [facility] [id number] Univers 13:00:00 13:00:00 [facility] 2021-08-03 2021-08-03 Letter Doctor PRIEST 1.2.840.114 [id number] Univers 00:00:00 00:00:00 (Out) Unassigned, ROJELIO [id number] ity of [place] [facility] [id number] Will as [phone] [address] 2021-08-03 2021-08-03 Letter Doctor PRIEST 1.2.840.114 [id number] Univers 00:00:00 00:00:00 (Out) Unassigned, ROJELIO [id number] ity of [place] [facility] [id number] Will as [phone] [address] 2021-06-06 2021-06-06 Outpatient R JORGE A [facility] [id number] Univers 14:10:00 14:05:52 SUMANTH ellis [facility] 2021-06-06 2021-06-06 Imm/Inj Nurse, Adc Pob Immunization [facility] 1.2.840.114 [id number] Univers 14:05:44 14:05:52 Visit Sumanth Jules 350.1.13 .10 it[place] [phone] Sc dical NAL [address] Branch BUILDING 2020-12-15 2020-12-15 [facility] 1.2.840.114 [id number] Univers 13:22:43 13:45:25 Visit Marcus [facility] [id number] it y of [place] [id number] Will as essio [phone] Sc dical nal [address] [place] Office [address] 2020-12-15 2020-12-15 Outpatient Jenelle AVNI [facility] [id number] Univers 13:30:00 13:30:00 MARCUS melva [facility] 2020-12-09 2020-12-09 Outpatient Jenelle AVNI [facility] [id number] Univers 07:45:00 07:45:00 [facility] 2020-11-03 2020-11-03 [facility] [id number] Univers 13:40:00 08:25:03 JOHN ity [facility] 2020-10-06 2020-10-06 Outpatient [facility] [id number] Univers 13:40:00 13:34:49 JOHN y [facility] 2020-03-23 2020-03-23 [facility] 1.2.840.114 [id number] Univers 16:19:00 16:59:00 Landy Nur [id number] i ty of [place] 4.2.7.2.686 [facility] [id number] [facility] 084 [place] 2020-03-23 2020-03-23 Orders Doctor PRIEST 1.2.840.114 [id number] Univers 00:00:00 00:00:00 Only Unassigned, ROJELIO [id number] ity of [place] [facility] [id number] Will as [id number] [facility] 009 [place] 2020-03-13 2020-03-13 Emergency Vishal Alex [facility] 1.2.840. 114 [id number] Univers 19:03:00 23:57:00 Vihsal Alex 350.1.13.10 ity of [place] 4.2.7.2.686 [facility] [phone] [place] [id number] Branch Results Test Description Test Time Test Comments Results Result Comments Source TROPONIN I 2020-03-14 04:22:00 Test Item Value Reference Range Interpretation Comme nts TROPONIN I (test code = <0.012 See_Comment [Au tomated message] The [id number]) system which [employer] nerated this result tra nsmitted reference range : <=0.034 ng/mL. The refe rence range was not u sed to interpret this result as normal/abnormal . MALINDA (test code = MALINDA) Equal or Less than 0.034 ng/ml---Normal ?Note: Cardiac troponin begins to rise 3-4 hours after the onset of ischemia. Repeat in 4-6 hours if the sample was drawn within 3-4 hours of the onset of the symptom and found normal. Between 0.035 and 0.120 ng/mL--- Borderline. Questionable myocardial injury or necrosis ? ?Note: Serial measurement may be necessary to confirm or exclude the diagnosis of myocardial injury or necrosis; Clinical correlation (symptoms, EKGs, imaging studies, and others) required; Repeat in 4-6 hours if clinically indicated. ? Equal or Higher than 0.121 ng/mL---Abnormal. Myocardial Injury or Necrosis Likely ? Biotin has been reported to cause a negative bias, interpret results relative to patient's use of biotin. ? Lab Interpretation (test Normal code = 33544-5) [facility] [id number] 02:27:13 No acute cardiopulmonary abnormality. Preliminary Report Dictated by Resident: Dave Solorzano MD., have reviewed this study and agree with theabove report.EXAM: XR CHEST 1 VW COMPARISON: None. TECHNIQUE: A single AP radiograph of the of the chest was obtained. HISTORY: syncope FINDINGS: Lungs: The lungs are clear. No pleural effusion or pneumothorax isidentified. Aortic arch calcifications. Heart/Mediastinum: The cardiomediastinal silhouette is normal in size. Bones: No acute osseous abnormality is seen. Right AC joint osteoarthrosis. [facility], Radiant Results Inft User - 03/13/2020 9:28 PM CDTEXAM: XR CHEST 1 VWCOMPARISON: None.TECHNIQUE: A single AP radiograph of the of the chest was obtained.HISTORY: syncope FINDINGS:Lungs: The lungs are clear. No pleural effusion or pneumothorax isidentified. Aortic arch calcifications.Heart/Mediastinum: The cardiomediastinal silhouette isnormal in size.Bones: No acute osseous abnormality is seen. Right AC joint osteoarthrosis.IMPRESSIONNo acute cardiopulmonary abnormality.Preliminary Report Dictated by Resident: Dave Hong MD., have reviewed this study and agree with theabove report.[facility] WITH [id number] 01:07:00 Test Item Value Reference Range Interpretation Comments WBC (test code = See_Comment [Automated 5490-2) message] The sy stem which generated this result transmitted reference range : 4.20 - 10.70 10*3/?L. The reference range was not used to interpret this result as normal/abnormal . RBC (test code = See_Comment [Automated 999-8) message] The sy stem which generated this result transmitted reference range : 4.26 - 5.52 10*6/?L. The reference range was not used to interpret this result as normal/abnormal . HGB (test code = 14.8 g/dL 12.2-16.4 718-7) HCT (test code = 42.3 % 38.4-49.3 4544-3) MCV (test code = 90.6 fL 81.7-95.6 787-2) MCH (test code = 31.7 pg 26.1-32.7 785-6) MCHC (test code = 35.0 g/dL 31.2-35 786-4) RDW-SD (test code = 39.2 fL 38.5-51.6 49158-1) RDW-CV (test code = 11.9 % 12.1-15.4 L 788-0) PLT (test code = See_Comment H [Automated 727-3) message] The sy stem which generated this result transmitted reference range : 150 - 328 10*3/ ?L. The reference r leizabeth was not used to interpret this result as normal/abnormal . MPV (test code = 11.8 fL 9.8-13 55511-4) NRBC/100 WBC (test See_Comment [Automat ed code = 9372948393) message] The system which generated this result transmitted reference range : 0.0 - 10.0 /100 WBCs. The refer ence range was not u sed to interpret th is result as normal/abnormal . NRBC x10^3 (test code <0.01 See_Comment [Auto mated = 7499423091) message] The s ystem which generated this result transmitted reference range : 10*3/?L. The reference range was not used to interpret this result as normal/abnormal . GRAN MAT (NEUT) % 63.2 % (test code = 770-8) IMM GRAN % (test code 2.90 % = 2878397159) LYMPH % (test code = 21.3 % 736-9) MONO % (test code = 9.4 % 5905-5) EOS % (test code = 2.6 % 713-8) BASO % (test code = 0.6 % 706-2) GRAN MAT x10^3(ANC) 6.18 10*3/uL 1.99-6.95 (test code = 7107047642) IMM GRAN x10^3 (test 0.28 10*3/uL 0-0.06 H code = 1977302835) LYMPH x10^3 (test code 2.08 10*3/uL 1.09-3.23 = 731-0) MONO x10^3 (test code 0.92 10*3/uL 0.36-1.02 = 742-7) EOS x10^3 (test code = 0.25 10*3/uL 0.06-0.53 711-2) BASO x10^3 (test code 0.06 10*3/uL 0.01-0.09 = 704-7) Lab Interpretation Abnormal (test code = 04827-8) [id number]00 Test Item Value Reference Range Interpretation Comments TROPONIN I (test <0.012 See_Comment [Automated code = 0667327321) message] The system which generated this result transmitted reference range : <=0.034 ng/mL. The reference range was not used to interpr et this result as normal/abnormal . MALINDA (test code = Equal or Less than MALINDA) 0.034 ng/ml---Normal ?Note: Cardiac troponin begins to rise 3-4 hours after the onset of ischemia. Repeat in 4-6 hours if the sample was drawn within 3-4 hours of the onset of the symptom and found normal. Between 0.035 and 0.120 ng/mL--- Borderline. Questionable myocardial injury or necrosis ? ?Note: Serial measurement may be necessary to confirm or exclude the diagnosis of myocardial injury or necrosis; Clinical correlation (symptoms, EKGs, imaging studies, and others) required; Repeat in 4-6 hours if clinically indicated. ? Equal or Higher than 0.121 ng/mL---Abnormal. Myocardial Injury or Necrosis Likely ? Biotin has been reported to cause a negative bias, interpret results relative to patient's use of biotin. ? Lab Interpretation Normal (test code = 71999-5) [facility] GLUCOSE (AUTOMATED)2020-03-14 00:52:00 Test Item Value Reference Range Interpretation Comments POCT GLU (test code = 4793194564) 118 mg/dL 70-110 H Lab Interpretation (test code = Abnormal 56312-8) [facility]48[facility]00 Test Item Value Reference Range Interpretation Comments ALCOHOL (test code = 49 mg/dL 6257846750) MALINDA (test code = MALINDA) <10 Oylapmqt52-162 Toxic>100 Depression of BUDGET ACCOUNTANT>400 Fatalities Reported [facility] GLUCOSE(AGE >30DAYS)2020-03-14 00:48:00 Test Item Value Reference Range Interpretation Comments POCT Glu (age>30days) (test code = 118 mg/dL 70-110 A 3342) Lab Interpretation (test code = Abnormal 64803-5) [facility] (02534[facility]2020-03-14 00:47:00 Test Item Value Reference Range Interpretation Comments NA (test code = 132 mmol/L 135-145 L 9831487730) K (test code = 3.7 mmol/L 3.5-5 9633343307) CL (test code = 98 mmol/L 98-108 7439366341) CO2 TOTAL (test code = 23 mmol/L 23-31 5368165211) AGAP (test code = 2-16 3111650210) BUN (test code = 11 mg/dL 7-23 6931535622) GLUCOSE (test code = 128 mg/dL 70-110 H 4132607636) CREATININE (test code = 0.87 mg/dL 0.6-1.25 3646970855) TOTAL BILI (test code = 0.3 mg/dL 0.1-1.8 3289504922) CALCIUM (test code = 8.9 mg/dL 8.6-10.6 4446560115) T PROTEIN (test code = 8.3 g/dL 6.3-8.2 H 2242739594) ALBUMIN (test code = 4.4 g/dL 3.5-5 8417925340) ALK PHOS (test code = 72 U/L 34-122 8968522404) ALTv (test code = 36 U/L 5-50 1742-6) AST(SGOT) (test code = 33 U/L 13-40 4698525707) eGFR Calculation mL/min/1.73m2 (Non-) (test code = 1537863175) eGFR Calculation mL/min/1.73m2 () (test code = 4837679813) MALINDA (test code = MALINDA) Association of Glomerular Filtration Rate (GFR) and Staging of Kidney Disease* + --+ --+ ------+| GFR (mL/min/1.73 m2) ?| With Kidney Damage ?| ?Without Kidney Damage+ --------+ --------+ +| ?>90 ?| ?Stage one ?| ? Normal ?+ ---+ ---+ -------+| ?60-89 ?| ?Stage two ?| ? Decreased GFR ? + --+ --+ ------+| ?30-59 ?| ?Stage three ?| ? Stage three ? + --+ --+ ------+| ?15-29 ?| ?Stage four ? | ? Stage four ?+ ---+ ---+ -------+| ?<15 (or dialysis) ? ?| ?Stage five ? | ? Stage five ?+ ---+ ---+ -------+ *Each stage assumes the associated GFR level has been in effect for at least three months. ?Stages 1 to 5, with or without kidney disease, indicate chronic kidney disease. Notes: Determination of stages one and two (with eGFR >59mL/min/1.73 m2) requires estimation of kidney damage for at least three months as defined by structural or functional abnormalities of the kidney, manifested by either:Pathological abnormalities or Markers of kidney damage (including abnormalities in the composition of the blood or urine or abnormalities in imaging tests). Lab Interpretation Abnormal (test code = 02089-0) [facility]:47:00 Test Item Value Reference Range Interpretation Comments MAGNESIUM (test code = 6258371312) 2.1 mg/dL 1.7-2.4 Lab Interpretation (test code = Normal 10889-6) [facility]"
[2022-09-26 10:19] LABS: Hematocrit 44.3 % (39.6-49.0); Lymphocytes % 4.8 % (15.3-44.8); MCV 91.8 fL (80-100); MPV 9.8 fL (7.6-11.3); RBC Red Blood Cell Count 4.82 M/uL (4.33-5.43)
[2022-09-26 10:34] LABS: Bilirubin Total 0.4 mg/dL (0.2-1.0); Potassium 3.9 mmol/L (3.5-5.1)
[2022-09-26] MEDS ORDERED: ONDANSETRON 4 MG/2 ML VIAL ONE (10:44)
[2022-09-26] MEDS ORDERED: NA CHLORIDE 0.9% 1,000 ML ONE ×2 (10:44→14:00)
[2022-09-26 11:05] LABS: SARS-COV-2 RT PCR NEGATIVE (NEGATIVE)
--- NOTE | 2022-09-26 11:39 | RAD REPORT ---
EXAM DESCRIPTION: CT - Abdomen Pelvis W Contrast - 09/26/2022 11:07 am CLINICAL HISTORY: diarrhea COMPARISON: [facility] Protocol dated 10/28/2018; Abdomen Pelvis W Contrast dated 05/23/2018; [facility] col dated 05/28/2017; Abdomen Pelvis Wo Contrast dated 10/28/2016 TECHNIQUE: Thin cut axial CT imaging of the abdomen and pelvis was performed following intravenous a dministration of 95 mL Isovue 300. Multiplanar reformats were generated and reviewed. All CT scans are performed using dose optimization technique as appropriate and may include automated exposure control or mA/KV adjustment according to patient size. FINDINGS: No suspicious findings in the lung bases. The liver, spleen, and pancreas show no suspicious findings. Gallbladder and biliary tree are also wi thout suspicious finding. Symmetric renal function is seen with no hydronephrosis or suspicious renal mass. No dilated bowel loops. Mild long segment bowel wall thickening along the ascending colon and proxima l transverse colon. No free air, free fluid or significant inflammatory fat stranding. No hernia, mas s or bulky lymphadenopathy. The urinary bladder is without significant finding. No suspicious bony findings. IMPRESSION: Mild long segment wall thickening along the ascending colon and proximal transverse colo n, nonspecific but suggests mild infectious or inflammatory colitis.
[2022-09-26] MEDS ORDERED: NA CHLORIDE 0.9% 0 ML ONE (12:04)
[2022-09-26] MEDS ORDERED: CIPROFLOXACIN 400mg IV 400 MG/200 ML BAG IV ONE (12:04)
[2022-09-26] MEDS ORDERED: METRONIDAZOLE 500mg IVPB 500 MG/100 ML BAG IV ONE (12:04)
--- NOTE | 2022-09-26 13:25 | ER ---
Nurse's Notes [facility] Name: Shameka Villanueva Age: 67 yrs Sex: Male : 1955 Arrival Date: 09/26/2022 Time: 09:55 Bed 26 Private MD: Rufus Catalan E Diagnosis: Left sided colitis without complications Presentation: 09/26 10:14 Chief complaint: Patient states: he has had nausea, but no vomiting and abdominal pain ap3 for approx 3 weeks. Coronavirus screen: At this time, the client does not indicate any symptoms associated with coronavirus-19. Ebola Screen: No symptoms or risks identified at this time. Initial Sepsis Screen: Does the patient meet any 2 criteria? No. Patient's initial sepsis screen is negative. Does the patient have a suspected source of infection? No. Patient's initial sepsis screen is negative. Risk Assessment: Do you want to hurt yourself or someone else? Patient reports no desire to harm self or others. Onset of symptoms was August 30, 2022. 10:14 Method Of Arrival: Ambulatory ap3 10:14 Acuity: SHAQ 3 ap3 Triage Assessment: 10:16 General: Appears uncomfortable, Behavior is calm, cooperative, appropriate for age. ap3 Pain: Complains of pain in abdomen. Neuro: Level of Consciousness is awake, alert, obeys commands, Oriented to person, place, time, situation. Cardiovascular: Patient's skin is warm and dry. Respiratory: Airway is patent Respiratory effort is even, unlabored, Respiratory pattern is regular, symmetrical. GI: Reports lower abdominal pain, upper abdominal pain, diarrhea. Historical: - Allergies: 10:16 No Known Allergies; ap3 - PMHx: 10:16 None; ap3 - Immunization history:: Client reports receiving the 2nd dose of the Covid vaccine, Flu vaccine is up to date. - Social history:: Smoking status: Patient denies any tobacco usage or history of. - Family history:: not pertinent. - Hospitalizations: : No recent hospitalization is reported. Screenin:17 [facility] ED Fall Risk Assessment (Adult) History of falling in the last 3 months, ap3 including since admission No falls in past 3 months (0 pts). Abuse screen: Denies threats or abuse. Nutritional screening: No deficits noted. Tuberculosis screening: No symptoms or risk factors identified. Assessment: 11:17 Reassessment: Patient and/or family updated on plan of care and expected duration. Pain kr3 level reassessed. Patient is alert, oriented x 3, equal unlabored respirations, skin warm/dry/pink. 12:10 Reassessment: Patient and/or family updated on plan of care and expected duration. Pain kr3 level reassessed. Patient is alert, oriented x 3, equal unlabored respirations, skin warm/dry/pink. provided water to patient. 13:46 Reassessment: patient will be discharge upon antibiotic and fluid completion. kr3 Vital Signs: 10:14 BP 131 / 84; Pulse 103; Resp 17; Temp 98.5; Pulse Ox 98% ; Weight 100.7 kg; Height 5 ap3 ft. 8 in. (172.72 cm); 12:10 BP 131 / 64; Pulse 109; Resp 18; Pulse Ox 100% on R/A; kr3 10:14 Body Mass Index 33.75 (100.70 kg, 172.72 cm) ap3 ED Course: 09:55 Patient arrived in ED. am2 09:55 Rufus Catalan MD is Private Physician. am2 09:57 Esteban Pisano MD is Attending Physician. rn 10:16 Triage completed. ap3 10:17 Arm band placed on right wrist. ap3 11:09 CT Abd/Pelvis - IV Contrast Only In Process Unspecified. EDMS 11:17 Marilee Iqbal, RN is Primary Nurse. kr3 Administered Medications: 10:46 Drug: NS 0.9% 1000 ml Route: IV; Rate: 1 bolus; Site: right antecubital; kr3 10:47 Drug: Zofran (Ondansetron) 4 mg Route: IVP; Site: left antecubital; kr3 12:08 Drug: Flagyl (metroNIDAZOLE) 500 mg Volume: 100 ml; Route: IVPB; Rate: 200 ml/hr; kr3 Infused Over: 30 mins; Site: left antecubital; 12:57 Drug: Cipro (ciprofloxacin) 400 mg Volume: 200 ml; Route: IVPB; Infused Over: 60 mins; kr3 Site: left antecubital; 13:50 Drug: NS 0.9% 1000 ml Route: IV; Rate: 1000 ml; Site: left antecubital; kr3 Outcome: 13:25 Discharge ordered by . rn 15:37 Patient left the ED. kr3 Signatures: Dispatcher [employer] EDMS Esteban Pisano MD MD rn Moreno, Amanda am2 Jessica Nye RN RN ap3 Marilee Iqbal RN RN kr3
--- NOTE | 2022-09-26 13:25 | EDPHYS ---
Physician Documentation [facility] Name: Shameka Villanueva Age: 67 yrs Sex: Male : 1955 Arrival Date: 09/26/2022 Time: 09:55 Bed 26 Private MD: Rufus Catalan E ED Physician Esteban Pisano HPI: 09/26 11:07 This 67 yrs old Male presents to ER via Ambulatory with complaints of Diarrhea.rn 11:07 The patient presents to the emergency department with nausea, diarrhea. Onset: The rn symptoms/episode began/occurred 3 week(s) ago. Possible causes: unknown. The symptoms are aggravated by nothing. The symptoms are alleviated by nothing. Associated signs and symptoms: Pertinent positives: abdominal pain, diarrhea, Pertinent negatives: fever, GI bleeding. Severity of symptoms: At their worst the symptoms were moderate in the emergency department the symptoms are unchanged. The patient has not experienced similar symptoms in the past. The patient has not recently seen a physician. Historical: - Allergies: 10:16 No Known Allergies; ap3 - PMHx: 10:16 None; ap3 - Immunization history:: Client reports receiving the 2nd dose of the Covid vaccine, Flu vaccine is up to date. - Social history:: Smoking status: Patient denies any tobacco usage or history of. - Family history:: not pertinent. - Hospitalizations: : No recent hospitalization is reported. ROS: 11:07 Constitutional: Negative for fever, chills, and weight loss, Eyes: Negative for injury, rn pain, redness, and discharge, Cardiovascular: Negative for chest pain, palpitations, and edema, Respiratory: Negative for shortness of breath, cough, wheezing, and pleuritic chest pain, Abdomen/GI: + abd pain and diarrhea. Neg for vomiting. + nausea. Back: Negative for injury and pain, MS/Extremity: Negative for injury and deformity, Skin: Negative for injury, rash, and discoloration, Neuro: + generalized weakness Exam: 11:07 Constitutional: This is a well developed, well nourished patient who is awake, alert, rn and in no acute distress. Head/Face: Normocephalic, atraumatic. ENT: dry MM Cardiovascular: Tachycardic, regular. No pulse deficits. Respiratory: No increased work of breathing, no retractions or nasal flaring. Abdomen/GI: Soft, non-tender Skin: Warm, dry MS/ Extremity: Pulses equal, no cyanosis Neuro: Awake and alert, GCS 15 Vital Signs: 10:14 BP 131 / 84; Pulse 103; Resp 17; Temp 98.5; Pulse Ox 98% ; Weight 100.7 kg; Height 5 ap3 ft. 8 in. (172.72 cm); 12:10 BP 131 / 64; Pulse 109; Resp 18; Pulse Ox 100% on R/A; kr3 10:14 Body Mass Index 33.75 (100.70 kg, 172.72 cm) ap3 MDM: 09:58 Patient medically screened. rn 13:22 Differential diagnosis: Nonspecific abd pain, appendicitis, diverticulitis, viral rn gastroenteritis, gastroenteritis, colitis. 13:23 Data reviewed: vital signs, nurses notes, lab test result(s), radiologic studies, CT rn scan, and as a result, I will discharge patient. Consideration of Admission/Observation Escalation of care including admission/observation considered. CT shows mild colitis, patient not vomiting, pain mild, pt would like to go home after long discussion.. I considered the following discharge prescriptions or medication management in the emergency department Medications were administered in the Emergency Department. See MAR. Counseling: I had a detailed discussion with the patient and/or guardian regarding: the historical points, exam findings, and any diagnostic results supporting the discharge/admit diagnosis, lab results, radiology results, the need for outpatient follow up, to return to the emergency department if symptoms worsen or persist or if there are any questions or concerns that arise at home. Response to treatment: the patient's symptoms have markedly improved after treatment, and as a result, I will discharge patient. Special discussion: Based on the patient's Hx, exam, and Dx evaluation, there is no indication for emergent surgery or inpatient Tx. It is understood by the patient/guardian that if the Sx's persist or worsen they need to return immediately for re-evaluation. I discussed with the patient/guardian in detail that at this point there is no indication for admission to the hospital. It is understood, however, that if the symptoms persist or worsen the patient needs to return immediately for re-evaluation. 09/26 10:04 Order name: CBC with Diff; Complete Time: 11: rn 09/26 10:04 Order name: CMP; Complete Time: 11: rn 09/26 10:04 Order name: Lipase; Complete Time: 11:06 rn 09/26 10:04 Order name: CT Abd/Pelvis - IV Contrast Only; Complete Time: 11:40 rn 09/26 10:04 Order name: IV Saline Lock; Complete Time: 10:11 rn 09/26 10:04 Order name: Labs collected and sent; Complete Time: 10:11 rn 09/26 10:04 Order name: COVID-19/FLU A+B; Complete Time: 11:06 rn Administered Medications: 10:46 Drug: NS 0.9% 1000 ml Route: IV; Rate: 1 bolus; Site: right antecubital; kr3 10:47 Drug: Zofran (Ondansetron) 4 mg Route: IVP; Site: left antecubital; kr3 12:08 Drug: Flagyl (metroNIDAZOLE) 500 mg Volume: 100 ml; Route: IVPB; Rate: 200 ml/hr; kr3 Infused Over: 30 mins; Site: left antecubital; 12:57 Drug: Cipro (ciprofloxacin) 400 mg Volume: 200 ml; Route: IVPB; Infused Over: 60 mins; kr3 Site: left antecubital; 13:50 Drug: NS 0.9% 1000 ml Route: IV; Rate: 1000 ml; Site: left antecubital; kr3 Disposition Summary: 09/26/22 13:25 Discharge Ordered Location: Home rn Problem: new rn Symptoms: have improved rn Condition: Stable rn Diagnosis - Left sided colitis without complications rn Followup: rn - With: Private Physician - When: 2 - 3 days - Reason: Recheck today's complaints, Re-evaluation by your physician Discharge Instructions: - Discharge Summary Sheet rn - Colitis rn Forms: - Medication Reconciliation Form rn - Thank You Letter rn - Antibiotic learning support services director - Prescription Opioid Use rn Prescriptions: - Cipro 500 mg Oral Tablet - take 1 tablet by ORAL route every 12 hours for 10 days; 20 tablet; Refills: 0, rn Product Selection Permitted - Flagyl 500 mg Oral Tablet - take 1 tablet by ORAL route every 8 hours for 10 days; 30 tablet; Refills: 0, rn Product Selection Permitted - Tramadol 50 mg Oral Tablet - take 1 tablet by ORAL route every 8 hours as needed; 12 tablet; Refills: 0, rn Product Selection Permitted - ondansetron 4 mg Oral - take 4 milligrams by SUBLINGUAL route every 8 hours; 15 tablet; Refills: 0, rn Product Selection Permitted Signatures: Dispatcher [employer] Esteban Pratt MD MD rn Jessica Nye RN RN ap3 Marilee Iqbal RN RN kr3
[2022-09-26 15:45] VITALS: BP 131/64; O2SAT 100
[2022-09-26 15:53] VITALS: TEMP 101.2
== END 2022-09-26 15:37 | disposition home or self-care (01) ==
LOC: ER 09:49
DX: K51.50 Left sided colitis without complications (principal); Z20.822 Contact with and (suspected) exposure to COVID-19
CPT/HCPCS: 85025; 36415; 83690; 80053; 0240U; 74177; Q9967; J7030 ×2; J2405; J0744

== ENCOUNTER 2023-01-15 10:52 | Emergency (ER) | payer OTHER ==
--- OUTSIDE RECORDS SUMMARY | 2023-01-15 10:56 | XMS REPORT | Continuity of Care Document ---
:[address] [facility] t Address [address] [place] [address] Care Team Providers Name Role Phone PCP, PATIENT DOES NOT HAVE A Primary Care Physician UnavailJacobo Whitehead Attending Clinician Unavailable PATI BRADFORD Attending Clinician Unavailable EbhiPati Hebert Attending Clinician Unknown, Attending Attending Clinician Unavailable Doctor Unassigned, [place] Attending Clinician Unavailable Vaccine, Adc Family Medicine Attending Clinician Unavailable Sumanth Jules DO Attending Clinician SUMANTH JULES Attending Clinician Unavailable Doreen Murray RN Attending Clinician Unavailable ALISON VILLEGAS Attending Clinician Unavailable Only, Ang Db Test Attending Clinician Unavailable Alison Peralta Attending Clinician Nurse, Erik Pob Immunization Attending Clinician Unavailable Marcus Holly MD Attending Clinician MARCUS HOLLY Attending Clinician Unavailable JOHN RODRIGUEZ Attending Clinician Unavailable Landy Hudson Attending Clinician Vishal Cardenas Attending Clinician Payers Payer Name Policy Type Policy Number Effective Date Expiration Date S ourcait [employer] HMO [id number] 2022 00:00:00 Problems Condition Condition Condition Status Onset Resolution Last Treating Co mments Source Name Details Category Date Date Treatment Clinician Date Essential Essential Disease Active Uni vers hypertensi hypertensi 5-19 it y of [place] 00:00: [place] [address] Medical [place] No known No known Disease Unive rs active active ity of problems problems [facility] Allergies, Adverse Reactions, Alerts Allergy Allergy Status Severity Reaction(s) Onset Inactive Treating Comm ents Source Name Type Date Date Clinician NO KNOWN Drug Active Univers ALLERGIE Class ity of S [facility] Social History Social Habit Start Date Stop Date Quantity Comments Source History SDOH University o f Alcohol Frequency [facility] [place] [facility] History SDOH University o f Alcohol Std Drinks [facility] History SDWY University o f Alcohol Binge [facility] al Branch Exposure to 2022-09-12 2022-09-22 Not sure University of SARS-CoV-2 (event) 00:00:00 09:25:00 [facility] Cigarettes smoked 2022-09-22 2022-09-22 Univers ity of current (pack per 00:00:00 00:00:00 [facility] [place] [facility] ) - Reported Branch Cigarette 2022-09-22 2022-09-22 University of pack-years 00:00:00 00:00:00 [facility] Tobacco use and 2022-09-22 2022-09-22 Smokeless Universit y of exposure 00:00:00 00:00:00 tobacco non-user [facility] dical [place] Alcohol intake 2022-09-22 2022-09-22 Current drinker Unive rsity of 00:00:00 00:00:00 of alcohol [facility] (finding) [place] Alcohol Comment 2017-06-04 2017-06-04 social; 1-2 Universi ty of 00:00:00 00:00:00 every 2 weeks. [facility] History of tobacco 2005-06-04 Cigarette Smoker University of use 00:00:00 [facility] Sex [birth year] Universit y of 00:00:00 00:00:00 [facility] Smoking Status Start Date Stop Date Source Ex-smoker 2022-09-22 00:00:00 2022-09-22 00:00:00 [facility] Medical Branch Medications Ordered Filled Start Stop Current Ordering Indication Dosage Frequency Signature Comments Components Source Medication Medication Date Date Medication? Clinician (SIG) Name Name lisinopriL Yes [id number] 10mg Take 1 U nivers 10 mg 5-19 tablet by ity of tablet 00:00: mouth [place] 00 daily. Medical Branch lisinopriL Yes [id number] 10mg Take 1 U nivers 10 mg 5-19 tablet by ity of tablet 00:00: mouth [place] 00 daily. Medical Branch lisinopriL Yes [id number] 10mg Take 1 U nivers 10 mg 5-19 tablet by ity of tablet 00:00: mouth [place] 00 daily. Medical Branch lisinopriL Yes [id number] 10mg Take 1 U nivers 10 mg 5-19 tablet by ity of tablet 00:00: mouth [place] 00 daily. Medical Branch lisinopriL Yes [id number] 10mg Take 1 U nivers 10 mg 5-19 tablet by ity of tablet 00:00: mouth [place] 00 daily. Medical Branch lisinopriL Yes [id number] 10mg Take 1 U nivers 10 mg 5-19 tablet by ity of tablet 00:00: mouth [place] 00 daily. Medical Branch lisinopriL Yes [id number] 10mg Take 1 U nivers 10 mg 5-19 tablet by ity of tablet 00:00: mouth [place] 00 daily. Medical Branch lisinopriL Yes [id number] 10mg Take 1 U nivers 10 mg 5-19 tablet by ity of tablet 00:00: mouth [place] 00 daily. Medical Branch lisinopriL 0 Yes [id number] 10mg Take 1 U nivers 10 mg 5-19 tablet by ity of tablet 00:00: mouth [place] 00 daily. Medical Branch lisinopriL 0 Yes [id number] 10mg Take 1 U nivers 10 mg 5-19 tablet by ity of tablet 00:00: mouth [place] 00 daily. Medical Branch naproxen 0 2020- No 500mg 500 mg, Univ ers (NAPROSYN) 03-14 Oral, ity of tablet 500 05:45: 04:45 ONCE, 1 [place] mg 00 :00 dose, [place] [facility] 03/14/20 at Branch 0045, Routine HYDROcodone 2019- 2020- No 1{tbl} 1 tablet, Univers -acetaminop 03-14 Oral, ity of hen (NORCO) 05:45: 04:45 [place] 1 [place] 10[place]325 mg [place] :00 dose, [facility] tablet 1 03/14/20 at [facility] tablet 0045, Routine lidocaine-r 2019-2019- No 3mL 3 mL, Univ ers acepinep-te 03-14 Topical, ity of tracaine 04:30: 03:45 ONCE, 1 [place] (L.E.T. 00 :00 dose, [facility] Medical (LIDO-EPINE 03/13/20 at [facility] PH-TETRA)) 2330, 4-0.05-0.5 Routine % topical gel 3 mL acetaminoph 2019- No 1000mg 1,000 mg, Univers en 03-14 Oral, ity of (TYLENOL) 01:30: 00:21 ONCE, 1 [place] tablet [place] :[place] dose, [place] Medical 1,000 mg 03/13/20 at [facility] 2030, FAVIO naproxen 2020-0 Yes [id number] 500mg Take 1 U nivers (NAPROSYN) 8-15 tablet by ity of 500 mg 00:00: mouth 2 [place] tablet 00 (two) Medical times Branch daily with meals. naproxen 2020-0 Yes [id number] 500mg Take 1 U nivers (NAPROSYN) 8-15 tablet by ity of 500 mg 00:00: mouth 2 [place] tablet 00 (two) Medical times Branch daily with meals. naproxen 2020-0 Yes [id number] 500mg Take 1 U nivers (NAPROSYN) 8-15 tablet by ity of 500 mg 00:00: mouth 2 [place] tablet 00 (two) Medical times Branch daily with meals. naproxen 2020-0 2020- No [id number] 500mg Take 1 Univers (NAPROSYN) 8-15 05-19 tablet by ity of 500 mg 00:00: 00:00 mouth 2 [place] tablet 00 :00 (two) Medical times Branch daily with meals. naproxen 2020-0 2020- No [id number] 500mg Take 1 Univers (NAPROSYN) 8-15 05-19 tablet by ity of 500 mg 00:00: 00:00 mouth 2 [place] tablet 00 :00 (two) Medical times Branch daily with meals. triamcinolo 2018- Yes [id number] Apply to [facility] 2-07 area(s) 2 ity of acetonide 00:00: (two) [place] 0.1 % cream 00 times Medical daily. Branch triamcinolo 2018-07 Yes [id number] Apply to [facility] 2-07 area(s) 2 ity of acetonide 00:00: (two) [place] 0.1 % cream 00 times Medical daily. Branch triamcinolo 2018-07 Yes [id number] Apply to [facility] 2-07 area(s) 2 ity of acetonide 00:00: (two) [place] 0.1 % cream 00 times Medical daily. Branch triamcinolo 2018-07- No [id number] Apply to [facility] 2-07 05-19 area(s) 2 ity of acetonide 00:00: 00:00 (two) [place] 0.1 % cream 00 :00 times Medical daily. Branch triamcinolo 2018-07- No [id number] Apply to [facility] 2-07 05-19 area(s) 2 ity of acetonide 00:00: 00:00 (two) [place] 0.1 % cream 00 :00 times Medical daily. Branch hydrOXYzine Yes [id number] 25mg Take 1 Univers 25 mg 4-04 tablet by ity of tablet 00:00: mouth [place] 00 every 6 Medical (six) Branch hours as needed for Itching. hydrOXYzine Yes [id number] 25mg Take 1 Univers 25 mg 4-04 tablet by ity of tablet 00:00: mouth [place] 00 every 6 Medical (six) Branch hours as needed for Itching. hydrOXYzine Yes [id number] 25mg Take 1 Univers 25 mg 4-04 tablet by ity of tablet 00:00: mouth [place] 00 every 6 Medical (six) Branch hours as needed for Itching. hydrOXYzine 2020- No [id number] 25mg Take 1 Univers 25 mg 4-04 05-19 tablet by ity of tablet 00:00: 00:00 mouth [place] 00 :00 every 6 Medical (six) Branch hours as needed for Itching. hydrOXYzine 2020- No [id number] 25mg Take 1 Univers 25 mg 10-31 tablet by ity of tablet 00:00: 00:00 mouth [place] 00 :00 every 6 Medical (six) Branch hours as needed for Itching. Immunizations Ordered Filled Immunization Date Status Comments [facility] e Immunization Name Name SARS-COV-2 COVID-19 [...] Completed Unive rsity of MODERNA BOOSTER 00:00:00 [place] Med ical VACCINE Branch SARS-COV-2 COVID-19 2021-06-06 Completed Unive rsity of MODERNA BOOSTER 00:00:00 [place] Med ical VACCINE Branch SARS-COV-2 COVID-19 2021-06-06 Completed Unive rsity of MODERNA BOOSTER 00:00:00 [place] Med ical VACCINE Branch SARS-COV-2 COVID-19 2021-06-06 Completed Unive rsity of MODERNA BOOSTER 00:00:00 [place] Med ical VACCINE Branch SARS-COV-2 COVID-19 2021-06-06 Completed Unive rsity of MODERNA BOOSTER 00:00:00 [place] Med ical VACCINE Branch SARS-COV-2 COVID-19 2021-06-06 [...] Unive rsity of MODERNA VACCINE 00:00:00 [facility] ical Branch Vital Signs Vital Name Observation Time Observation Value Comments Source Systolic blood 2022-09-22 16:13:00 149 mm[Hg] Univer sity of pressure [facility] Diastolic blood 2022-09-22 16:13:00 94 mm[Hg] Unive rsity of pressure [facility] Heart rate 2022-09-22 16:13:00 114 /min [facility] Body temperature 2022-09-22 16:13:00 36.89 Jeny [facility] Respiratory rate 2022-09-22 16:13:00 16 /min [facility] Body weight 2022-09-22 16:13:00 106.595 kg [facility] BMI 2022-09-22 16:13:00 35.73 kg/m2 [facility] Oxygen saturation in 2022-09-22 16:13:00 99 /min [facility] Arterial blood by [facility] Pulse oximetry Branch Diastolic blood 2020-12-15 18:29:00 98 mm[Hg] Unive rsity of pressure [facility] Heart rate 2020-12-15 18:29:00 105 /min [facility] Body height 2020-12-15 18:29:00 172.7 cm [facility] Body weight 2020-12-15 18:29:00 109.77 kg Universi ty of [place] [facility] BMI 2020-12-15 18:29:00 36.80 kg/m2 Universi ty of [place] [facility] Systolic blood 2020-12-15 18:29:00 146 mm[Hg] Univer sity of pressure [place] [facility] Systolic blood 2020-03-23 21:19:00 134 mm[Hg] Univer sity of pressure [place] [facility] Diastolic blood 2020-03-23 21:19:00 94 mm[Hg] Unive rsity of pressure [place] [facility] Heart rate 2020-03-23 21:19:00 100 /min Universi ty of [place] [facility] Body temperature 2020-03-23 21:19:00 36.89 Jeny Univ ersity of [facility] Branch Respiratory rate 2020-03-23 21:19:00 18 /min Univ ersity of [place] [facility] Body weight 2020-03-23 21:19:00 113.399 kg Universi ty of [place] [facility] BMI 2020-03-23 21:19:00 38.01 kg/m2 Universi ty of [place] [facility] Oxygen saturation in 2020-03-23 21:19:00 97 /min University of Arterial blood by [facility] Pulse oximetry Branch Heart rate 2020-03-14 04:30:00 100 /min Universi ty of [place] [facility] Respiratory rate 2020-03-14 04:30:00 23 /min Univ ersity of [place] [facility] Oxygen saturation in 2020-03-14 04:30:00 97 /min University of Arterial blood by [facility] Pulse oximetry Branch Systolic blood 2020-03-14 04:00:00 146 mm[Hg] Univer sity of pressure [facility] Branch Diastolic blood 2020-03-14 04:00:00 92 mm[Hg] Unive rsity of pressure [facility] Branch Body temperature 2020-03-14 00:12:00 36.56 Jeny Univ ersity of [place] [facility] Body weight 2020-03-14 00:12:00 113.399 kg Universi ty of [place] [facility] BMI 2020-03-14 00:12:00 38.01 kg/m2 Universi ty of [place] [facility] Procedures Procedure Date / Time Performed Performing Clinician [facility] e CONSENT/REFUSAL FOR 2022-09-22 15:25:52 Doctor Unassigned, No Un [facility] DIAGNOSIS AND Name Medical Branch TREATMENT SARS-COV-2 COVID-19 2022-04-19 14:00:39 Doctor Unassigned, No Un [facility]ity of [place] VACCINE 18 YRS+, Name Medical Branch BIVALENT 0.5ML, IM (MODERNA BOOSTER) SARS-COV-2 COVID-19 2021-06-06 20:13:47 Doctor Unassigned, No Un [facility] [place] VACCINE Name Medical Branch BOOSTER,0.25ML,IM (MODERNA) CONSENT/REFUSAL FOR 2020-03-23 21:12:09 Doctor Unassigned, No Un [facility] [place] DIAGNOSIS AND Name Medical Branch TREATMENT TROPONIN I 2020-03-14 03:35:00 Vishal Alex [facility] XR CHEST 1 VW 2020-03-14 00:53:20 Vishal Alex [facility] POCT GLUCOSE(AGE 2020-03-14 00:48:00 Vishal Alex [facility] >30DAYS) Medical Branch POCT GLUCOSE 2020-03-14 00:47:00 Vishal Alex [facility] (AUTOMATED) [facility] CT CERVICAL SPINE WO 2020-03-14 00:39:03 Vishal Alex [facility] CONTRAST Medical Branch CT HEAD WO CONTRAST 2020-03-14 00:39:03 Vishal Alex [facility] Medical Branch MAGNESIUM 2020-03-14 00:21:00 Vishal Alex [facility] TROPONIN I 2020-03-14 00:21:00 Vishal Alex [facility] COMP. METABOLIC PANEL 2020-03-14 00:21:00 Vishal Alex [facility] ([id number]) Medical Branch ETHANOL 2020-03-14 00:21:00 Vishal Alex [facility] CBC WITH DIFF 2020-03-14 00:21:00 Vishal Alex [facility] EKG-12 LEAD 2020-03-14 00:20:11 Vishal Alex [facility] NOTICE OF PRIVACY 2020-03-14 00:03:11 Doctor Unassigned, No [facility] Name Medical Branch CONSENT/REFUSAL FOR 2020-03-14 00:02:18 [facility] Medical Branch TREATMENT ED LACERATION REPAIR 2020-03-14 00:01:00 Vishal Alex [facility] ity of [facility] Encounters Start End Encounter Admission Attending Care Care Encounter Source Date/Time Date/Time Type Type Clinicians Facility Department ID 2023-01-01 [facility] [id number] Common 09:54:01 Avnee 92517 Spirit - [facility] 2021-05-27 Emergency [facility] [id number] Univers 14:29:19 ity of [facility] 2021-05-27 Emergency [facility] [id number] Univers 12:41:08 ity of [facility] 2022-09-22 2022-09-22 Outpatient Jenelle BRADFORD [facility] [id number] Univers 09:20:00 11:06:18 PATI itmelva of [facility] 2022-09-22 2022-09-22 Urgent Pati Bradford [facility] 1.2.840.114 [id number] Univers 09:20:00 09:40:00 Care Unknown, Attending HEALTH 350.1.13.10 ity of [place] 4.2.7.2.686 Will as GERRI?BLEA [phone] Ne ester MCDONALD [address] [place] MEDICAL OFFICE BUILDING 2022-09-22 2022-09-22 Orders Doctor ZAYDA 1..840.114 [id number] Univers 00:00:00 00:00:00 Only Unassigned, ROJELIO 350.1.13.10 ity of [place] [facility] 4.2.7.2.686 Will as [phone] [facility] ricardo 009 Branch 2022-04-19 2022-04-19 Imm/Inj Vaccine, Adc Family Medicine [facility] 1.2.840.114 [id number] Univers 09:30:00 09:40:00 Visit Sumanth Jules 350.1.13 .10 [facility] [place] [phone] Ne ester FUNEZ 044 Branch BUILDING 2022-04-19 2022-04-19 Outpatient Jenelle JULES [facility] [id number] Univers 09:30:00 [facility]29[facility] 2021[facility]08-05 2021-08-05 Letter ZAYDA Murray 1.2.840.114 [id number] Univers 00:00:00 00:00:00 (Out) Doreen Rivera ROJELIO 350.1.13.10 it y of HOSPITAL 4.2.7.2.686 Will as [phone] [address] 2021-08-03 2021-08-03 Outpatient Jenelle VILLEGAS [facility] [id number] Univers 13:15:00 13:23:00 ALISON [place] [facility] 2021-08-03 2021-08-03 Laboratory Only, Ang Db Test [facility] 1.2.8 40.114 [id number] Univers 13:15:00 13:23:00 [facility] 350.1.13.10 ity of [place] 4.2.7.2.686 Will as GERRI?BLEA [phone] Ne ester [address] MEDICAL OFFICE BUILDING 2021-08-03 2021-08-03 Outpatient Jenelle VILLEGAS [facility] [id number] Univers 13:00:00 13:00:00 ALISON [place] [facility] 2021-08-03 2021-08-03 Letter Doctor PRIEST 1.2.840.114 [id number] Univers 00:00:00 00:00:00 (Out) Unassigned, ROJELIO 350.1.13.10 ity of [place] [facility] 4.2.7.2.686 Will as [phone] [address] 2021-08-03 2021-08-03 Letter Doctor PRIEST 1.2.840.114 [id number] Univers 00:00:00 00:00:00 (Out) Unassigned, ROJELIO 350.1.13.10 ity of [place] [facility] 4.2.7.2.686 Will as [phone] [address] 2021-06-06 2021-06-06 Outpatient Jenelle JULES [facility] [id number] Univers 14:10:00 14:05:52 SUMANTH [facility] 2021-06-06 2021-06-06 Imm/Inj Nurse, Adc Pob Immunization [facility] 1.2.840.114 [id number] Univers 14:05:44 14:05:52 Visit Jasmeet Sumanth Rudolph PAZ 350.1.13 .10 ity of [facility] 4.2.7.2.[place] [id number] Ne dical NAL 421 [facility] 2020-12-15 2020-12-15 Office Avni [facility] 1.2.840.114 [id number] Univers 13:22:43 13:45:25 Visit [facility] 350.1.13.10 it y of [place] 4.2.7.2.686 Will as Professio [phone] Ne dical nal [address] [place] Office [facility] 2020-12-15 2020-12-15 Outpatient R AVNI [facility] [id number] Univers 13:30:00 13:30:00 [facility] [facility] 2020-12-09 2020-12-09 Outpatient R AVNI [facility] [id number] Univers 07:45:00 07:45:00 [facility] [facility] 2020-11-03 2020-11-03 Outpatient R JENNIFER [facility] [id number] Univers 13:40:00 08:25:03 JOHN [place] [facility] 2020-10-06 2020-10-06 Outpatient Jenelle RODRIGUEZ [facility] [id number] Univers 13:40:00 13:34:49 [facility] 2020-03-23 2020-03-23 Emergency Castrejon, [facility] 1.2.840.114 [id number] Univers 16:19:00 16:59:00 Landy Paz 350.1.13.10 i ty [place]2.7.2.686 [place] [phone] [address] 2020-03-23 2020-03-23 Orders Doctor ZAYDA 1.2.840.114 [id number] Univers 00:00:00 00:00:00 Only Unassigned, ROJELIO 350.1.13.10 ity of [place] [facility] 4.2.7.2.686 Will as [id number] [facility] 009 Branch 2020-03-13 2020-03-13 Emergency Vishal Alex [facility] 1.2.840. 114 [id number] Univers 19:03:00 23:57:00 Vishal Alex [place] 350.1.13.10 it wali [place] 4.2.7.2.686 [facility] [phone] [place] [id number] Branch Results Test Description Test Time Test Comments Results Result Comments Source TROPONIN I 2020-03-14 04:22:00 Test Item Value Reference Range Interpretation Comme nts TROPONIN I (test code = <0.012 See_Comment [Au tomated message] The 0563582477) system which ge nerated this result tra nsmitted reference range [...] ? Lab Interpretation (test Normal code = 54751-9) [facility] [id number] 02:27:13 No acute cardiopulmonary abnormality. Preliminary Report [...] reviewed this study and agree with theabove report.[facility] WITH [id number] 01:07:00 Test Item Value Reference Range Interpretation Comments WBC (test code = See_Comment [Automated 5285-2) message] The sy stem which generated this result transmitted reference range : 4.20 - 10.70 10*3/?L. The reference range was not used to interpret this result as normal/abnormal . RBC (test code = See_Comment [Automated 802-8) message] The sy stem which generated this [...] RDW-SD (test code = 39.2 fL 38.5-51.6 95792-0) RDW-CV (test code = 11.9 % 12.1-15.4 L 788-0) PLT (test code = See_Comment H [Automated 777-3) message] The sy stem which generated this result transmitted reference range : 150 - 328 10*3/ ?L. The reference r elizabeth was not used to interpret this result as normal/abnormal . MPV (test code = 11.8 fL 9.8-13 25160-6) NRBC/100 WBC (test See_Comment [Automat ed code = 0525670014) message] The system which generated this result transmitted reference range : 0.0 - 10.0 /100 WBCs. The refer ence range was not u sed to interpret th is result as normal/abnormal . NRBC x10^3 (test code <0.01 See_Comment [Auto mated = 5180299111) message] The s ystem which generated this result transmitted reference range : 10*3/?L. The reference range was not used to interpret this result as normal/abnormal . GRAN MAT (NEUT) % 63.2 % (test code = 770-8) IMM GRAN % (test code 2.90 % = 8975061556) LYMPH % (test code = 21.3 % 736-9) MONO % (test code = 9.4 % 5905-5) EOS % (test code = 2.6 % 713-8) BASO % (test code = 0.6 % 706-2) GRAN MAT x10^3(ANC) 6.18 10*3/uL 1.99-6.95 (test code = 9380824627) IMM GRAN x10^3 (test 0.28 10*3/uL 0-0.06 H code = 3584196483) LYMPH x10^3 (test code 2.08 10*3/uL 1.09-3.23 = 731-0) MONO x10^3 (test code 0.92 10*3/uL 0.36-1.02 = 742-7) EOS x10^3 (test code = 0.25 10*3/uL 0.06-0.53 711-2) BASO x10^3 (test code 0.06 10*3/uL 0.01-0.09 = 704-7) Lab Interpretation Abnormal (test code = 00370-9) [id number] 01:01:00 Test Item Value Reference Range Interpretation Comments TROPONIN I (test <0.012 See_Comment [Automated code = 2081420888) message] The system which generated this result [...] ? Lab Interpretation Normal (test code = 95252-2) [facility] GLUCOSE (AUTOMATED)2020-03-14 00:52:00 Test Item Value Reference Range Interpretation Comments POCT GLU (test code = 4430862468) 118 mg/dL 70-110 H Lab Interpretation (test code = Abnormal 41156-8) [facility] 00:48:00 Test Item Value Reference Range Interpretation Comments ALCOHOL (test code = 49 mg/dL 7199758710) MALINDA (test code = MALINDA) <10 Aejkclsm13-104 Toxic>100 Depression of [employer]OR RECRUITMENT MANAGER>[address] [facility] GLUCOSE(AGE >30DAYS)2020-03-14 00:48:00 Test Item Value Reference Range Interpretation Comments POCT Glu (age>30days) (test code = 118 mg/dL 70-110 A 3342) Lab Interpretation (test code = Abnormal 62483-6) [facility]. METABOLIC PANEL (71113)2020-03-14 00:47:00 Test Item Value Reference Range Interpretation Comments NA (test code = 132 mmol/L 135-145 L 1814134443) K (test code = 3.7 mmol/L 3.5-5 3940334549) CL (test code = 98 mmol/L 98-108 0371292010) CO2 TOTAL (test code = 23 mmol/L 23-31 0108303843) AGAP (test code = 2-16 8391880061) BUN (test code = 11 mg/dL 7-23 5603440618) GLUCOSE (test code = 128 mg/dL 70-110 H 2236495621) CREATININE (test code = 0.87 mg/dL 0.6-1.25 1803011257) TOTAL BILI (test code = 0.3 mg/dL 0.1-1.3 4822903013) CALCIUM (test code = 8.9 mg/dL 8.6-10.6 5638011517) T PROTEIN (test code = 8.3 g/dL 6.3-8.2 H 1458568928) ALBUMIN (test code = 4.4 g/dL 3.5-5 5438950929) ALK PHOS (test code = 72 U/L 34-122 4280034905) ALTv (test code = 36 U/L 5-50 1742-6) AST(SGOT) (test code = 33 U/L 13-40 8860670816) eGFR Calculation mL/min/1.73m2 (Non-) (test code = 5093682602) eGFR Calculation mL/min/1.73m2 () (test code = 4921831567) MALINDA (test code = MALINDA) Association of [...] tests). Lab Interpretation Abnormal (test code = 59267-7) [facility] 00:47:00 Test Item Value Reference Range Interpretation Comments MAGNESIUM (test code = 3969074235) 2.1 mg/dL 1.7-2.4 Lab Interpretation (test code = Normal 38674-5) [facility]"
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
--- NOTE | 2023-01-15 11:35 | RAD REPORT ---
EXAM DESCRIPTION: RAD - C Spine Ap/Lat - 01/15/2023 11:27 am CLINICAL HISTORY: Neck pain FINDINGS: No fracture or dislocation is seen. Moderate spondylosis C5-6. Mild posterior subluxation C5 on C6. No significant prevertebral soft tiss ue swelling seen
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
[2023-01-15] MEDS ORDERED: HYDROCODONE/APAP 5/325 MG TAB ONE (13:26)
[2023-01-15 13:48] VITALS: TEMP 98.1
[2023-01-15 13:49] VITALS: BP 157/109; O2SAT 95
== END 2023-01-15 13:43 | disposition home or self-care (01) ==
LOC: ER 10:52
DX: S16.1XXA Strain of muscle, fascia and tendon at neck level, initial encounter (principal); S30.1XXA Contusion of abdominal wall, initial encounter; S70.02XA Contusion of left hip, initial encounter
CPT/HCPCS: 71250; 72040; 74176; 99284